=== PATIENT | female | born 1950 | race Caucasian/White ===

== ENCOUNTER → 2018-06-26 | Emergency (ER) | payer OTHER ==
[~2018-06-26] VITALS: Ht 175.3 cm; Wt 59.0 kg
[~2018-06-26] MED LIST: NORVASC10 MG PO
== END | disposition home or self-care (01) ==
LOC: ER 16:43 → EDBD 16:50 → ER 16:50
DX: K59.09 Other constipation (principal); E87.6 Hypokalemia; N19 Unspecified kidney failure

== ENCOUNTER 2019-04-28 11:00 | Outpatient (CLI) | payer OTHER | END 2019-04-28 11:06 | disposition home or self-care (01) | LOC: SONOGRAMA 11:00 | DX: R79.89 Other specified abnormal findings of blood chemistry (principal) ==

== ENCOUNTER 2022-07-24 09:07 | Outpatient (CLI) | payer OTHER | END 2022-07-24 09:32 | disposition home or self-care (01) | LOC: SONOGRAMA 09:07 | DX: B18.2 Chronic viral hepatitis C (principal) ==

== ENCOUNTER → 2022-11-04 | Outpatient (CLI) | payer OTHER | END | disposition home or self-care (01) | LOC: NUCLEAR 08:00 | PROVIDERS: ATTEND Surgery | DX: C18.7 Malignant neoplasm of sigmoid colon (principal); D12.8 Benign neoplasm of rectum; R19.4 Change in bowel habit | CPT/HCPCS: 78815; A9552 ==